=== PATIENT | male | born 1990 | race Two or more races ===

== ENCOUNTER → 2016-12-23 | Outpatient (CLI) | payer OTHER ==
--- NOTE | 2016-12-23 15:38 | KCIC ---
Chest radiograph one view 12/23/2016 Clinical indication: Positive TB reactor. COMPARISON: None. FINDINGS: Cardiac and mediastinal silhouettes are within normal limits. No pleural effusion, pneumothorax or focal consolidation. IMPRESSION: No acute cardiopulmonary abnormality. Electronically signed by: Constantino Royal MD (12/23/2016 3:35 PM) [id number]
== END | disposition home or self-care (01) ==
LOC: KCIC 14:17
PROVIDERS: ATTEND Family Medicine
DX: R76.11 Nonspecific reaction to tuberculin skin test without active tuberculosis (principal)
CPT/HCPCS: 71010